=== PATIENT | female | born 1955 | race Caucasian/White ===

== ENCOUNTER 2022-03-08 14:01 | Emergency (ER) | payer MEDICARE ==
[~2022-03-08] VITALS: Ht 154.9 cm; Wt 86.4 kg
[2022-03-08] MEDS ORDERED: DICL-208 PO (14:16)
[2022-03-08] MEDS ORDERED: METF-1211 PO (14:16)
[2022-03-08] MEDS ORDERED: CHOL200059 PO (14:16)
[2022-03-08] MEDS ORDERED: LOSA-382 PO (14:16)
[2022-03-08] MEDS ORDERED: LORA-999 PO (14:21)
[2022-03-08] MEDS ORDERED: ATOR20TA65 PO (14:21)
[2022-03-08] MEDS ORDERED: HYDR25TA PO (14:21)
[2022-03-08] MEDS ORDERED: CHOL500013 PO (14:21)
[2022-03-08] MEDS ORDERED: PARO30TA60 PO (14:21)
[2022-03-08] MEDS ORDERED: GABA-1181 PO (14:21)
[2022-03-08] MEDS ORDERED: EZET10TA57 PO (14:21)
[2022-03-08] MEDS ORDERED: SERT-438 PO (14:21)
[2022-03-08 14:54] VITALS: BP 149/81
[2022-03-08] MEDS ORDERED: KETOROLAC TROMETHAMINE 60 MG/2 ML VIAL IM ONE (15:30)
[2022-03-08] MEDS ORDERED: METHOCARBAMOL 500 MG TABLET PO ONE (15:30)
[2022-03-08] MEDS ORDERED: IBUP-2070 PO (17:40)
== END 2022-03-08 18:14 | disposition home or self-care (01) ==
LOC: EMS 14:14
DX: S76.912A Strain of unspecified muscles, fascia and tendons at thigh level, left thigh, initial encounter (principal); E11.9 Type 2 diabetes mellitus without complications; I10 Essential (primary) hypertension; Z87.39 Personal history of other diseases of the musculoskeletal system and connective tissue; Z90.710 Acquired absence of both cervix and uterus; X58.XXXA Exposure to other specified factors, initial encounter; Y93.89 Activity, other specified; Y92.89 Other specified places as the place of occurrence of the external cause; Y99.8 Other external cause status
CPT/HCPCS: 99283; 73521; 96372; J1885

== ENCOUNTER 2023-04-13 20:03 | Emergency (ER) | payer MEDICARE ==
[~2023-04-13] VITALS: Ht 167.6 cm; Wt 77.3 kg
[~2023-04-13 20:03] MED LIST: ATOR20TA65 PO; CHOL500013 PO; DICL-208 PO; EZET10TA57 PO; GABA-1181 PO; HYDR25TA PO; IBUP-1492 PO; LORA-999 PO; LOSA-382 PO; METF-1211 PO; PARO30TA60 PO; SERT-438 PO
[2023-04-13 20:20] VITALS: TEMP 98.5
[2023-04-13] MEDS ORDERED: SODIUM CHLORIDE 0.9% 1,000 ML IV ONE (20:30)
[2023-04-13] MEDS ORDERED: METF-445 PO (20:31)
[2023-04-13 20:54] LABS: BASOPHILS % (AUTO) 0.1 % (0.0-2.0); EOSINOPHILS % (AUTO) 0.4 % (1.0-6.0); HEMATOCRIT 28.8 % (36-46); HEMOGLOBIN 9.6 g/dL (12.0-16.0); LYMPHOCYTES # (AUTO) 0.8 K/uL (1.0-4.8); LYMPHOCYTES % (AUTO) 5.6 % (22.0-44.0); MEAN CORPUSCULAR HGB CONC 33.4 G/dL (31.0-37.0); MEAN CORPUSCULAR VOLUME 93 fL (80-100); MONOCYTES # (AUTO) 0.8 K/uL (0.1-1.0); MONOCYTES % (AUTO) 6.1 % (2.0-9.0); NEUTROPHILS # (AUTO) 11.9 K/uL (1.8-7.7); PLATELET COUNT (AUTO) 243 K/uL (150-450); RED BLOOD CELL COUNT(AUTO) 3.11 MIL/uL (4.00-5.20); RED CELL DISTRIBUTION WIDTH 13.3 % (11.5-14.5); WHITE BLOOD COUNT (AUTO) 13.6 K/uL (4.5-11.0)
[2023-04-13 20:56] LABS: NEUTROPHILS % (AUTO) 87.8 % (40.0-70.0)
[2023-04-13 21:17] LABS: CALCIUM, TOTAL 8.4 mg/dL (8.8-10.5); CREATININE 2.82 mg/dL (0.60-1.30); POTASSIUM 3.1 mmol/L (3.5-5.1)
[2023-04-13 21:24] LABS: ALBUMIN 2.2 g/dL (3.4-5.0); TOTAL PROTEIN, SERUM 6.9 g/dL (6.4-8.2)
[2023-04-13 23:09] LABS: APPEARANCE,URINE HAZY (CLEAR); BILIRUBIN,URINE NEGATIVE (NEGATIVE); COLOR,URINE YELLOW (YELLOW); GLUCOSE, URINE (UA) NEGATIVE (NEGATIVE); KETONES,URINE NEGATIVE (NEGATIVE); LEUKOCYTE ESTERASE ,URINE LARGE (NEGATIVE); NITRATE,URINE NEGATIVE (NEGATIVE); OCCULT BLOOD,URINE MODERATE (NEGATIVE); PH,URINE 5.5 (5.0-8.0); PROTEIN,URINE 100-200,SEE CONFIRM mg/dL (NEGATIVE); SPECIFIC GRAVITIY, URINE 1.011 (1.003-1.030); UROBILINOGEN,URINE <=1.0 mg/dL (<=1.0)
[2023-04-13 23:40] LABS: SULFOSALICYLIC ACID,URINE 1+ (Negative)
[2023-04-13 23:41] LABS: BACTERIA,URINE Few /HPF (None Seen); SQUAMOUS EPITHELIAL CELL,UR Few /LPF (None Seen)
[2023-04-14] MEDS ORDERED: CefTRIAXone 1 GM/DEXTROSE 50 ML IV ONE (00:45)
[2023-04-14 01:00] VITALS: BP 121/58; PULSE 58; RESP 14
[2023-04-14] MEDS ORDERED: CEPH-558 PO (01:08)
== END 2023-04-14 01:52 | disposition home or self-care (01) ==
LOC: EMS 20:03
DX: N39.0 Urinary tract infection, site not specified (principal); E11.9 Type 2 diabetes mellitus without complications; I10 Essential (primary) hypertension; Z90.710 Acquired absence of both cervix and uterus
CPT/HCPCS: 99285; 74176; 96361; 80053; 81001; 82962; 85025; 36415; 87086; 87186; 96365; J0696; J7030; 81002

== ENCOUNTER 2024-01-26 20:07 | Emergency (ER) | payer MEDICARE ==
[~2024-01-26] VITALS: Ht 160 cm; Wt 77.3 kg
[~2024-01-26 20:07] MED LIST changes: +CEPH-558 PO; -DICL-208 PO; +DICL50TA10 PO; -IBUP-1492 PO; -METF-1211 PO; +METF-445 PO
[2024-01-26 20:40] VITALS: TEMP 98.2
[2024-01-26 21:00] LABS: GLUCOMETER DEV NAME(LOC) ER.7; GLUCOSE,POINT OF CARE 125 MG/DL (70-110)
[2024-01-26] MEDS: HYDROCODONE/ACETAMINOPHEN 5-325 MG TABLET PO ONE (21:58)
[2024-01-26] MEDS: IBUPROFEN 600 MG TABLET PO ONE (21:58)
[2024-01-26] MEDS ORDERED: OXYC5 PO (23:45)
[2024-01-26] MEDS: OxyCODONE HCL 5 MG IR TABLET PO ONE (23:46)
[2024-01-26 23:51] VITALS: BP 102/54; PULSE 75; RESP 18; O2SAT 98
== END 2024-01-27 | disposition home or self-care (01) ==
LOC: EMS 20:07
DX: S42.252A Displaced fracture of greater tuberosity of left humerus, initial encounter for closed fracture (principal); E11.9 Type 2 diabetes mellitus without complications; I10 Essential (primary) hypertension; Z90.710 Acquired absence of both cervix and uterus; W19.XXXA Unspecified fall, initial encounter; Y93.89 Activity, other specified; Y92.89 Other specified places as the place of occurrence of the external cause; Y99.8 Other external cause status
CPT/HCPCS: 82962; 99284

== ENCOUNTER 2025-01-27 02:07 | Emergency (ER) | payer MEDICARE ==
[~2025-01-27] VITALS: Ht 165.1 cm; Wt 91.4 kg
[~2025-01-27 02:07] MED LIST changes: -CEPH-558 PO; -LORA-999 PO; +LORA0.5T20 PO; +OXYC5 PO
[2025-01-27 02:24] VITALS: TEMP 98.3
[2025-01-27 02:30] VITALS: BP 116/63; PULSE 81; RESP 14; O2SAT 96
[2025-01-27] MEDS ORDERED: IBUP-1492 PO (04:55)
[2025-01-27] MEDS: IBUPROFEN 600 MG TABLET PO ONE (05:30)
== END 2025-01-27 05:33 | disposition home or self-care (01) ==
LOC: EMS 02:08
DX: S83.91XA Sprain of unspecified site of right knee, initial encounter (principal); S93.402A Sprain of unspecified ligament of left ankle, initial encounter; E11.9 Type 2 diabetes mellitus without complications; G89.29 Other chronic pain; I10 Essential (primary) hypertension; Z90.710 Acquired absence of both cervix and uterus; Z79.899 Other long term (current) drug therapy; W18.39XA Other fall on same level, initial encounter; W06.XXXA Fall from bed, initial encounter; Y93.89 Activity, other specified; Y92.89 Other specified places as the place of occurrence of the external cause; Y99.8 Other external cause status
CPT/HCPCS: 29530; 82962; 99284